=== PATIENT | female | born 1950 ===

== ENCOUNTER 2024-05-01 09:00 | Inpatient (IN) | payer OTHER ==
[~2024-05-01] VITALS: Ht 160 cm; Wt 52.2 kg
[2024-05-01] MEDS ORDERED: METFO (13:12)
[2024-05-01] MEDS ORDERED: COZAAR25 MG PO (13:12)
[2024-05-01 13:57] VITALS: BP 153/83
[2024-05-08] MEDS ORDERED: METRONIDAZOLE/SODIUM CHLORIDE 200 ML IV ONE (13:00)
[2024-05-08] MEDS ORDERED: CEFTRIAXONE SODIUM 2,000 MG in 0.9 % SODIUM CHLORIDE 50 ML IV ONE (13:00)
[2024-05-08] MEDS ORDERED: ONDANSETRON HCL 2 MG/ML VIAL IV PRN (14:45)
[2024-05-08] MEDS ORDERED: RINGERS SOLUTION,LACTATED 1,000 ML IV SCH (14:45)
[2024-05-08] MEDS ORDERED: OxyCODONE HCL 5 MG TABLET (ROXICODONE) PO PRN (14:45)
[2024-05-08] MEDS ORDERED: DEXTROSE 50 % IN WATER 0.5 G/ML DISP.SYRIN IV PRN (14:45)
[2024-05-08] MEDS ORDERED: MORPHINE SULFATE 4 MG/ML CARTRIDGE IV PRN (14:45)
[2024-05-08] MEDS ORDERED: GABAPENTIN 300 MG CAPSULE PO SCH (17:00)
[2024-05-08] MEDS ORDERED: POLYETHYLENE GLYCOL 3350 17 GM BLIST.PACK PO SCH (17:00)
[2024-05-08] MEDS ORDERED: HYOSCYAMINE SULFATE 0.125 MG TAB.SUBL SL SCH (17:00)
[2024-05-08 17:51] VITALS: BP 149/66; O2SAT 99
[2024-05-08 18:02] LABS: HEMATOCRIT 37.4 % (36.0-45.00); HEMOGLOBIN 12.8 g/dL (12.0-15.00); MEAN CELL VOLUME 86.5 fL (80.00-100.00); MEAN CORPUSCULAR HEMOGLOBIN 29.5 pg (27.00-32.0); MEAN CORPUSCULAR HGB CONC 34.1 g/dl (32.0-36.0); PLATELET COUNT 238 K/uL (150-450); RED BLOOD COUNT 4.33 M/uL (4.00-6.00); RED CELL DISTRIBUTION WIDTH 13.9 % (11.5-14.5)
[2024-05-08 18:25] LABS: ALBUMIN 3.3 gm/dL (3.4-5.0); CALCIUM 9.1 mg/dL (8.5-10.1); CREATININE SERUM 0.75 mg/dL (0.55-1.02); GFR 75.75; MAGNESIUM 1.4 mg/dL (1.8-2.4); PHOSPHOROUS 3.1 mg/dL (2.5-4.9); POTASSIUM 3.49 mEq/L (3.5-5.1)
[2024-05-08] MEDS ORDERED: ACETAMINOPHEN 500 MG GEL..CAP PO SCH (20:00)
[2024-05-08] MEDS ORDERED: FAMOTIDINE/PF 20 MG/2 ML VIAL IV PUSH SCH (21:00)
[2024-05-09 00:50] VITALS: BP 121/68; O2SAT 100
[2024-05-09 08:00] VITALS: BP 119/65; O2SAT 96
[2024-05-09] MEDS ORDERED: LOSARTAN POTASSIUM 25 MG TABLET PO SCH (09:00)
[2024-05-09 09:45] LABS: HEMATOCRIT 35.7 % (36.0-45.00); MEAN CELL VOLUME 87.4 fL (80.00-100.00); MEAN CORPUSCULAR HEMOGLOBIN 29.3 pg (27.00-32.0); MEAN CORPUSCULAR HGB CONC 33.6 g/dl (32.0-36.0); PLATELET COUNT 212 K/uL (150-450); RED BLOOD COUNT 4.08 M/uL (4.00-6.00); RED CELL DISTRIBUTION WIDTH 13.8 % (11.5-14.5)
[2024-05-09 09:50] LABS: ALBUMIN 2.9 gm/dL (3.4-5.0); CALCIUM 8.4 mg/dL (8.5-10.1); CREATININE SERUM 0.85 mg/dL (0.55-1.02); GFR 65.56; MAGNESIUM 1.5 mg/dL (1.8-2.4); PHOSPHOROUS 4.3 mg/dL (2.5-4.9); POTASSIUM 3.48 mEq/L (3.5-5.1)
[2024-05-09] MEDS ORDERED: MAGNESIUM SULFATE IN WATER 50 ML IV NR (11:00)
[2024-05-09] MEDS ORDERED: POTASSIUM PHOS,M-BASIC-D-BASIC 3 MM/ML VIAL IV ONE (13:00)
[2024-05-09] MEDS ORDERED: ENOXAPARIN SODIUM 40 MG/0.4 ML SYRINGE SUBCUTANEO SCH (17:00)
[2024-05-09 18:56] VITALS: BP 132/66; O2SAT 100
[2024-05-10 00:48] VITALS: BP 113/58; O2SAT 99
[2024-05-10] MEDS ORDERED: ENALAPRILAT DIHYDRATE 1.25 MG/ML VIAL IV PRN (06:45)
[2024-05-10 07:35] LABS: HEMATOCRIT 32.5 % (36.0-45.00); MEAN CELL VOLUME 87.7 fL (80.00-100.00); MEAN CORPUSCULAR HEMOGLOBIN 29.6 pg (27.00-32.0); MEAN CORPUSCULAR HGB CONC 33.8 g/dl (32.0-36.0); PLATELET COUNT 181 K/uL (150-450); RED BLOOD COUNT 3.71 M/uL (4.00-6.00); RED CELL DISTRIBUTION WIDTH 13.8 % (11.5-14.5)
[2024-05-10 07:56] LABS: CALCIUM 8.2 mg/dL (8.5-10.1); CREATININE SERUM 0.67 mg/dL (0.55-1.02); GFR 86.27; PHOSPHOROUS 2.3 mg/dL (2.5-4.9); POTASSIUM 3.91 mEq/L (3.5-5.1)
[2024-05-10 08:00] VITALS: BP 126/78; O2SAT 99
[2024-05-10] MEDS ORDERED: ENOXAPARIN SODIUM 40 MG/0.4 ML SYRINGE SUBCUTANEO SCH (09:00)
[2024-05-10] MEDS ORDERED: POTASSIUM PHOS,M-BASIC-D-BASIC 3 MM/ML VIAL IV ONE (12:00)
[2024-05-10 16:00] VITALS: BP 157/79; O2SAT 98
[2024-05-11 00:44] VITALS: BP 149/94; O2SAT 100
[2024-05-11 08:22] VITALS: BP 141/80; O2SAT 97
[2024-05-11] MEDS ORDERED: INTESTINEX680 M1 PO (15:12)
[2024-05-11] MEDS ORDERED: NEURONTIN300 MG PO (15:12)
[2024-05-11] MEDS ORDERED: ACETAMINOPHEN500 M2 PO (15:12)
[2024-05-11 16:00] VITALS: BP 147/73; O2SAT 99
== END 2024-05-11 19:58 | disposition home or self-care (01) | DRG 331 ==
LOC: O/R 05-08 07:46 → SURH 05-08 07:46
PROVIDERS: Internal Medicine Geriatric Medicine; ADMIT Surgery; ATTEND Surgery
PROC: 07BB4ZZ Excision of Mesenteric Lymphatic, Percutaneous Endoscopic Approach (ICD-10-PCS; 2024-05-08)
PROC: 0DNW4ZZ Release Peritoneum, Percutaneous Endoscopic Approach (ICD-10-PCS; 2024-05-08)
PROC: 0DTF4ZZ Resection of Right Large Intestine, Percutaneous Endoscopic Approach (ICD-10-PCS; principal; 2024-05-08 09:45)
DX: C18.2 Malignant neoplasm of ascending colon (principal); R59.0 Localized enlarged lymph nodes